=== PATIENT | male | born 1985 | race Two or more races ===

== ENCOUNTER 2023-10-12 17:18 | Emergency (ER) | payer MEDICAID, OTHER ==
[~2023-10-12] VITALS: Ht 188 cm; Wt 64.2 kg
[2023-10-12 18:19] VITALS: BP 123/84; PULSE 103; RESP 18; TEMP 97.9; O2SAT 99
[2023-10-12] MEDS ORDERED: ACET500T58 PO (19:02)
[2023-10-12] MEDS ORDERED: CYCL-614 PO (19:03)
== END 2023-10-12 19:38 | disposition home or self-care (01) ==
LOC: ER 17:18
DX: S16.1XXA Strain of muscle, fascia and tendon at neck level, initial encounter (principal); F15.90 Other stimulant use, unspecified, uncomplicated; Z79.899 Other long term (current) drug therapy; V43.53XA Car driver injured in collision with pick-up truck in traffic accident, initial encounter; Y93.I9 Activity, other involving external motion; Y92.411 Interstate highway as the place of occurrence of the external cause; Y99.8 Other external cause status